=== PATIENT | female | born 1955 | race Caucasian/White ===

== ENCOUNTER 2018-01-19 14:00 | Outpatient (RCR) | payer OTHER, SELFPAY ==
--- NOTE | 2018-01-04 08:08 | IE_ITS ---
Date: 01/04/18 Referring: Debra Lorenzo MD M.D. Diagnosis: (L) LE pain P.T. Diagnosis: Same SUBJECTIVE: History of Present Illness: Rita presents with complaints of (L) LE pain beginning about 8 months ago. She states that over the winter months she began experiencing pain through the lateral hip and groin extending over the anterior thigh and into the knee. She feels like there is stiffness in the knee and throbbing. She also describes pain extending into the groin particularly with prolonged sitting and standing (more than 30 minutes). She states that she feels as though this had been coming from her back. She was prescribed some medication and pain seemed to improve. During that time she also began a walking program stating that that seemed to significantly improve her symptoms. She had been able to perform daily walking with her father with whom she provides care for. He was in a rehab facility but since has returned home and she has noticed that again her pain has worsened since discontinuing walking. She is also experiencing pain in the (R) buttock stating that this began just a couple weeks ago. Pain Rating: Pt is unable to quantify. Pain Location: (L) lateral hip into the groin extending down the thigh to the level of the anterior knee. 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 She does not work and is on disability related to deafness. Current Level of Function: Unable to continue with her regular walking program due to responsibilities as a caregiver. She reports pain when standing for greater than 30 minutes, sitting for long periods or walking long distances. Previous Treatment: Pt was placed on diclofenac which she states is helpful. Comorbidities: Anxiety, deafness (pt has (B) hearing aids however relies heavily on lip reading) Falls in the last year: __X__ No ____Yes - How many? ____ - (if over 2, balance SM needs to be completed) Reported hospitalizations in the last year - __X__ No ____ Yes - Dates of admission/reason: Medications: Diclofenac, Cetirizine, Simvastatin and Certrolene Quality of Life: __X__ Good Standardized Measures: LEFS score: __16% Deficit__ OBJECTIVE: Posture: In static standing pt has significant hyper pronation noted (B). She has patella winking noted. She is in a supportive New Balance shoe. She is obese. Gait: Mildly antalgic with positive trendelumberg sign. She is (I) with bed mobility and transfers. Palpation: Grossly non tender throughout the lateral hip structures. She does have hypomobility noted in the (L) hip. ROM: Trunk ROM is grossly WNL and pt is able to touch finger tips to floor although with end range groin pain on the (L). Hip flexion allows 115* on the (R) and 100* (L) IR allows 25* (R) and 15* (L) ER allows 60* (R) and 45* (L) Knee motion is full although with audible clunk in the (L) knee when transitioning to flexed position. Strength: Hamstrings 4/5 (B) Quads 4+/5 (R) and 4/5 (L) Hip IR is 4-/5 (B) ER 4-/5 (B) Glute Med 4-/5 (R) and 3+/5 (L) Glute Min 3-/5 (B) Special Tests: Negative SLR which allows for 80* (B) and negative SLUMP test (B ), positive phabers test for pain reproduction on the (L) with 50% ROM reduction verus the contralateral side. Positive scour test on the (L) hip. Treatment: Todays session consisted of the evaluation followed by instruction in an early HEP. Pt was instructed in pelvic tilt exercises where she requires significant verbal and tactile cueing with extensive amount of time spent to achieve appropriate breathing techniques and positioning. Full HEP can be found in scanned documents. Direct treatment time: 35 minutes Total treatment time: 35 minutes ASSESSMENT: Patient is a 62-year-old female, referred for PT services with the diagnosis of (L) LE pain. Patient presents with clinical signs and symptoms consistent with (L) hip pain with suspecting underlying hip osteoarthritis due to ROM restrictions in an articular pattern , as demonstrated by the following impairment level findings: 1. Decreased (L) hip ROM, 2. Decreased LE strength (B ), 3. Biomechanical deficits with significant (B) hip pronation, 4. joint hypomobility in the (L) hip. Impairments are contributing to the following functional limitations: 1. Unable to tolerate long distance ambulation, 2. Unable to tolerate prolonged standing, 3. Unable to tolerate prolonged sitting. Patient is assessed as: __X__ Low 48029 ____ Moderate 44512 ____ High 46793 complexity, based on the following: History: Insidious onset of (L) LE pain and otherwise healthy pt with inactive lifestyle and significant social stressors with regards to caregiving for her father. Examination: See above for functional limitations and impairments. Presentation: X Stable Decision-Making: X Low complexity __X__ Patient requires skilled PT intervention to remediate the above functional limitations to return to: __X__ Premorbid level of function __X__ Return to full functional mobility __X__ Return to work demands __X__ Improve QOL Prognosis: __X__ Good G-Codes: Patient's primary functional limitation is in the category of: __X__ Mobility - walking and moving around : [id number] based on LEFS Projected goal: __X__ Mobility - walking and moving around: [id number] STG: __6__ weeks. 1. Tolerate initiation of an aquatic therapy program without an exacerbation of symptoms with pain. 2. Pt able to tolerate prolonged sitting without increase in pain. LTG: __12__ weeks. 1. Fully (I) Self management of symptoms. 2. Resume walking program PLAN: Patient to be seen 2 x per week, for 12 weeks, adjusting frequency of visits per patient symptoms and response to treatment. Treatment to include: X Manual therapy - [id number]: Joint mobilization to the (L) hip and will consider utilization of deep tissue mobilizations to the hip musculature including use of IASTM for neuro modulation. X Therapeutic exercise - [id number] an aquatic setting to allow for gradual increase in strengthening efforts. Thank you for this referral. Please do not hesitate to contact me with any questions or concerns regarding this patient's plan of care. Debra Lorenzo MD please sign below if you are in agreement with this patient's plan if care,
--- NOTE | 2018-01-10 10:32 | NT_ITS ---
01/10/18 Cancelled today's aquatic therapy session. Aiyana Vizcaino, STRIP STAMP STRAIGHTENER
--- NOTE | 2018-01-12 10:24 | AT_ITS ---
01/12/18 SUBJECTIVE: Rita reports pain relief post tx comes in with lateral (L) hip pain. ATx2: See flow sheet skilled cueing throughout for proper exercise performance of (B) hip girdle strengthening and core intrinsic activation, to the best of our ability considering pt stiffness. She follows directions well with simple commands and following my movement patterns and she is able to complete all exercises with proper movement patterns, she does require CORPORATE SECURITY MANAGER at this point due to her intrinsic weakness and general hip girdle weakness. Total 40 minutes Direct 30 minutes with minimal supervision.
--- NOTE | 2018-01-17 13:01 | NT_ITS ---
01/17/18 Cancelled today's scheduled aquatic therapy session. Aiyana Vizcaino, REPRODUCTIVE ENDOCRINOLOGIST
--- NOTE | 2018-01-19 09:08 | PTTR_ITS ---
DATE: 01/19/18 OBJECTIVE: * [X] Aquatic Therapy - (50381 x2): Patient completed a therapeutic exercise program in an aquatic setting for LE strengthening with decompression for pain relief, as per flow sheet. Patient tolerated a slight progression in her program today, modifications made to reps are noted on flow sheet. Patient required appropriate posture and proper exercise performance throughout session. Direct treatment time: 25 minutes Total treatment time: 30 minutes
== END 2018-01-27 23:59 | disposition home or self-care (01) ==
LOC: PT 14:00
PROVIDERS: PCP Internal Medicine; Referring Provider Family Medicine; Visit Provider Family Medicine
DX: M25.552 Pain in left hip (principal); M79.652 Pain in left thigh; M25.562 Pain in left knee
CPT/HCPCS: 97113; 97161; G8978

== ENCOUNTER 2018-03-31 16:54 | Outpatient (CLI) | payer OTHER, SELFPAY ==
--- NOTE | 2018-03-31 11:14 | DI.RAD_ITS ---
SYMPTOMS/DIAGNOSIS: HIP PAIN LT, M25.552 LEFT HIP AND PELVIS: Two views. No priors. There is mild narrowing of superior joint space of the left hip. Small osteophytes are seen arising from the acetabulum and the left femoral head. The right hip is well maintained as are the sacroiliac joints and symphysis pubis. No acute fracture, dislocation or suspicious lytic or sclerotic lesions are seen. The soft tissues are unremarkable. IMPRESSION: Mild degenerative changes of the left hip.
== END 2018-03-31 17:14 ==
PROVIDERS: PCP Family Medicine; Visit Provider Family Medicine
DX: M25.552 Pain in left hip (principal); M16.12 Unilateral primary osteoarthritis, left hip
CPT/HCPCS: 73502